=== PATIENT | male | born 1965 | race Caucasian/White ===

== ENCOUNTER 2021-09-26 00:29 | Emergency (ER) | payer BC ==
[~2021-09-26 00:29] MED LIST: HYDROCHLOROTHIA25 MG PO; HYDROCODON-ACE1 EAC6 PO; HYDROXYZINE HCL25 MG PO; KLONOPIN0.5 MG PO; LISINOPRIL5 MG PO; MELOXICAM15 MG PO; PERCOCET 5/325 T1 EA PO; SERTRALINE HCL25 MG PO; TAMSULOSIN HCL0.4 MG PO; ZOCOR40 MG PO
[2021-09-26 04:04] LABS: HEMOGLOBIN 14.7 gm/dl (14.0-17.5); RED BLOOD COUNT 4.63 M/UL (4.20-5.50); WHITE BLOOD COUNT 7.1 K/UL (4.5-11.0)
[2021-09-26] MEDS ORDERED: PERCOCET 5/325 T1 EA PO (04:04)
[2021-09-26] MEDS ORDERED: DECADRON4 MG PO (04:04)
[2021-09-26 04:23] LABS: BUN/CREATININE RATIO 25 (0-10)
== END 2021-09-26 04:20 | disposition home or self-care (01) ==
LOC: ER1 00:29
PROVIDERS: Physician Assistant
DX: M25.512 Pain in left shoulder (principal); M79.18 Myalgia, other site; M43.6 Torticollis; I10 Essential (primary) hypertension; E78.00 Pure hypercholesterolemia, unspecified; E78.5 Hyperlipidemia, unspecified; E11.9 Type 2 diabetes mellitus without complications; Z87.442 Personal history of urinary calculi
CPT/HCPCS: 72125; 73030; 80053; 85025; 85652; 86140; 99284

== ENCOUNTER 2022-01-06 08:40 | Observation (INO) | payer BC ==
[~2022-01-06] VITALS: Ht 175.3 cm; Wt 95.7 kg
[~2022-01-06 08:40] MED LIST changes: +DECADRON4 MG PO
[2022-01-06 09:18] LABS: HEMOGLOBIN 16.2 gm/dl (14.0-17.5); RED BLOOD COUNT 5.02 M/UL (4.20-5.50); WHITE BLOOD COUNT 7.1 K/UL (4.5-11.0)
[2022-01-06 09:55] LABS: BUN/CREATININE RATIO 24 (0-10)
[2022-01-06] MEDS ORDERED: AMLODIPINE BESYL5 MG PO (14:21)
[2022-01-06] MEDS ORDERED: ASPIRIN EC81 MG PO (14:22)
[2022-01-06] MEDS ORDERED: BEET ROOT PO (14:23)
[2022-01-07 02:48] LABS: HEMOGLOBIN 15.8 gm/dl (14.0-17.5); RED BLOOD COUNT 4.93 M/UL (4.20-5.50); WHITE BLOOD COUNT 6.7 K/UL (4.5-11.0)
[2022-01-07 03:21] LABS: BUN/CREATININE RATIO 28 (0-10)
[2022-01-07] MEDS ORDERED: TAB-A-VITE TA400 MC1 PO (10:58)
[2022-01-07] MEDS ORDERED: METFORMIN HCL500 MG PO (10:58)
[2022-01-07] MEDS ORDERED: NITROGLYCERIN0.4 MG SL (15:11)
[2022-01-07] MEDS ORDERED: ISOSORBIDE MONO30 MG PO (15:11)
== END 2022-01-07 16:14 | disposition home or self-care (01) ==
LOC: ER1 08:40 → CDU 11:39 → M/S 17:44
PROVIDERS: Nurse Practitioner; Physician Assistant; ADMIT Internal Medicine
DX: R07.89 Other chest pain (principal); I10 Essential (primary) hypertension; E78.5 Hyperlipidemia, unspecified; E11.9 Type 2 diabetes mellitus without complications; F41.9 Anxiety disorder, unspecified; Z72.89 Other problems related to lifestyle; Z82.49 Family history of ischemic heart disease and other diseases of the circulatory system; Z79.82 Long term (current) use of aspirin; Z79.899 Other long term (current) drug therapy
CPT/HCPCS: ECHO; 36415; 71045; 78452; 80048; 80053; 80061; 81001; 82550; 82553; 82962; 83036; 83735; 83880; 84484; 85025; 93005; 93017; 93306; 96372; 99285; A9502; G0378; J1650; J2785